=== PATIENT | female | born 1960 | race Caucasian/White ===

== ENCOUNTER 2023-02-05 07:30 | Outpatient (CLI) | payer OTHER ==
--- NOTE | 2023-02-05 10:54 | MRI Report ---
PROCEDURE: ELBOW WO - LT INDICATIONS: LEFT ELBOW PAIN TECHNIQUE: Noncontrast coronal proton density fast spin echo and T2 fast spin echo with fat saturation, axial an d sagittal T1 spin echo and T2 fast spin echo with fat saturation through the elbow. COMPARISON: None. FINDINGS: Image quality: Excellent. Lateral structures: The lateral ulnar collateral ligament and radial collateral ligament both appear intact. There is moderate to high-grade partial tearing of the common extensor tendon the origin torres perimposed on chronic tendinosis. Mild surrounding soft tissue edema is present. Medial structures: The ulnar collateral ligament appears intact. The overlying common flexor tendon appears normal. The ulnar nerve appears normal in size and signal within the cubital tunnel. Anterior structures: Mild insertional tendinosis of the distal biceps tendon. The distal brachialis t endon is intact. No bicipitoradial bursal fluid. The median and radial neurovascular bundles appear normal; no focal muscle atrophy to suggest nerve impingement. Posterior structures: The triceps tendon appears intact. No olecranon bursal fluid. Bone and cartilage: No bone marrow contusions or fractures. No osteochondral injuries. IMPRESSION: 1.Moderate to high-grade partial tearing of the common extensor tendon the origin superimposed on chr onic tendinosis. 2.Mild insertional tendinosis of the distal biceps tendon. Reviewed by: Alex Reeder MD on 02/05/2023 10:52 AM PDT Approved by: Alex Reeder MD on 02/05/2023 10:52 AM PDT Station ID: [id number]
== END 2023-02-05 07:31 | disposition home or self-care (01) ==
LOC: DI 07:30
PROVIDERS: ATTEND Physician Assistant
DX: S56.512A Strain of other extensor muscle, fascia and tendon at forearm level, left arm, initial encounter (principal); M67.824 Other specified disorders of tendon, left elbow